=== PATIENT | female | born 1990 ===

== ENCOUNTER 2021-01-11 11:57 | Emergency (ER) | payer OTHER, BC ==
[2021-01-11] MEDS ORDERED: Bacitracin 1 PK ONE (15:02)
== END 2021-01-11 15:06 | disposition home or self-care (01) ==
LOC: ERS 11:57
DX: S09.90XA Unspecified injury of head, initial encounter (principal); V87.8XXA Person injured in other specified noncollision transport accidents involving motor vehicle (traffic), initial encounter; Z79.899 Other long term (current) drug therapy; M06.9 Rheumatoid arthritis, unspecified
CPT/HCPCS: 70450; 72125